=== PATIENT | female | born 1990 | race Two or more races ===

== ENCOUNTER 2023-07-29 09:48 | Observation (INO) | payer MEDICAID ==
[2023-07-29 10:33] LABS: Basophils # (auto) 0.1 10 ^3/uL (0-0.2); Basophils % (auto) 0.9 % (0.0-2.0); Eosinophils # (auto) 0.1 10 ^3/uL (0-0.8); Eosinophils % (auto) 0.7 % (0.0-7.0); Hematocrit 39.3 % (36.0-46.0); Hemoglobin 13.5 g/dL (12.2-16.2); Lymphocytes # (auto) 2.3 10 ^3/uL (0.4-5.4); Lymphocytes % (auto) 19.2 % (10.0-50.0); Mean Corpuscular Hgb Conc. 34.3 g/dL (32.0-36.0); Mean Corpuscular Volume 87.5 fL (80.0-100.0); Monocytes # (auto) 0.6 10 ^3/uL (0-1.3); Monocytes % (auto) 4.7 % (0.0-12.0); Neutrophils # (auto) 8.8 10 ^3/uL (1.6-8.6); Neutrophils % (auto) 74.5 % (37.0-80.0); Red Blood Cells 4.49 10^6/uL (4.0-5.20); Red Cell Distribution Width 14.5 % (11.8-14.3); White Blood Cell 11.8 10^3/uL (4.4-10.8)
[2023-07-29 10:41] LABS: Urine Bacteria NONE SEEN /hpf (None Seen); Urine Blood Negative /uL (Negative); Urine Clarity Clear (Clear); Urine Protein, UAD Negative (Negative); Urine Specific Gravity 1.011 (1.001-1.035); Urine Urobilinogen Normal (Negative); Urine WBC 2 /hpf (0 - 5); Urine pH 7.5 (5.0-8.0)
[2023-07-29 10:42] LABS: Urine Color Straw (Yellow)
[2023-07-29 10:49] LABS: INR 0.92 (0.9-1.15); Partial Thromboplastin Time 26.8 SEC (24.5-34.5); Prothrombin Time 9.7 sec (9.3-11.8)
[2023-07-29 11:00] LABS: Protein, Urine < 6.0 mg/dL (0.0-11.9)
[2023-07-29 11:03] LABS: Creatinine, Urine 42.54 mg/dL (30.0-125.0); Urine Protein/Creatinine Ratio 0.14
[2023-07-29 11:06] LABS: Alanine Aminotransferase 13 U/L (7-40); Alkaline Phosphatase 50 U/L (46-116); Calcium 9.3 mg/dL (8.7-10.4); Carbon Dioxide 24 mmol/L (20-30); Chloride 107 mmol/L (98-107)
[2023-07-29 11:07] LABS: Albumin 4.4 g/dL (3.2-4.8); Anion Gap 5 (5-15); Aspartate Aminotransferase 13 U/L (13-40); BUN/Creatinine Ratio 9.8 (10.0-20.0); Bilirubin, Total 0.2 mg/dL (0.2-1.0); Blood Urea Nitrogen < 5 mg/dL (9-23); Glucose 95 mg/dL (74-106); Sodium 136 mmol/L (136-145); Total Protein 7.3 g/dL (5.7-8.2); Uric Acid 3.1 mg/dL (3.1-7.8)
[2023-07-29] MEDS ORDERED: PREN-96 PO (11:20)
[2023-07-29] MEDS ORDERED: NITR-87 PO (11:20)
== END 2023-07-29 11:38 | disposition home or self-care (01) ==
LOC: LDRP 09:48 → UNDOADMOB 09:48 → LDRP 09:57
PROVIDERS: ADMIT Obstetrics & Gynecology; ATTEND Obstetrics & Gynecology
DX: O26.892 Other specified pregnancy related conditions, second trimester (principal); R03.0 Elevated blood-pressure reading, without diagnosis of hypertension; Z3A.24 24 weeks gestation of pregnancy; Z79.899 Other long term (current) drug therapy
CPT/HCPCS: 36415; 59025; 80053; 81001; 81002; 82570; 84156; 84550; 85025; 85610; 85730; 94760; G0378

== ENCOUNTER 2023-08-01 08:09 | Observation (INO) | payer MEDICAID ==
[~2023-08-01] VITALS: Ht 152.4 cm; Wt 69.4 kg
[~2023-08-01 08:09] MED LIST: NITR-87 PO; PREN-96 PO
[2023-08-01 08:41] LABS: Urine Bacteria FEW /hpf (None Seen); Urine Blood Negative /uL (Negative); Urine Clarity HAZY (Clear); Urine Color Yellow (Yellow); Urine Mucus FEW (None Seen); Urine Protein, UAD 1+ (Negative); Urine Specific Gravity 1.029 (1.001-1.035); Urine Urobilinogen Normal (Negative); Urine WBC 73 /hpf (0 - 5)
[2023-08-01 08:49] LABS: Protein, Urine 17.8 mg/dL (0.0-11.9)
[2023-08-01 08:52] LABS: Creatinine, Urine 185.55 mg/dL (30.0-125.0); Urine Protein/Creatinine Ratio 0.1
[2023-08-01 10:56] LABS: Protein, Urine 8.3 mg/dL (0.0-11.9)
[2023-08-01 11:45] LABS: 24 Hr. Total Protein, Urine 103.7 mg/24 Hr (<149.1)
== END 2023-08-01 09:50 | disposition home or self-care (01) ==
LOC: LDRP 08:09
PROVIDERS: ADMIT Obstetrics & Gynecology; ATTEND Obstetrics & Gynecology
DX: O13.2 Gestational [pregnancy-induced] hypertension without significant proteinuria, second trimester (principal); Z3A.24 24 weeks gestation of pregnancy
CPT/HCPCS: 59025; 81001; 81002; 82570; 84156; 94760; G0378

== ENCOUNTER 2023-08-06 08:02 | Observation (INO) | payer MEDICAID ==
[~2023-08-06] VITALS: Ht 152.4 cm; Wt 69.4 kg
== END 2023-08-06 09:45 | disposition home or self-care (01) ==
LOC: UNDOADMOB 08:02 → LDRP 08:02
PROVIDERS: ADMIT Obstetrics & Gynecology; ATTEND Obstetrics & Gynecology
DX: O13.2 Gestational [pregnancy-induced] hypertension without significant proteinuria, second trimester (principal); O26.892 Other specified pregnancy related conditions, second trimester; H53.8 Other visual disturbances; Z3A.25 25 weeks gestation of pregnancy
CPT/HCPCS: 59025; 81002; 94760; G0378

== ENCOUNTER 2023-08-13 08:00 | Observation (INO) | payer MEDICAID | END 2023-08-13 09:07 | disposition home or self-care (01) | LOC: LDRP 08:00 | PROVIDERS: ADMIT Obstetrics & Gynecology; ATTEND Obstetrics & Gynecology | DX: O26.892 Other specified pregnancy related conditions, second trimester (principal); R03.0 Elevated blood-pressure reading, without diagnosis of hypertension; Z3A.26 26 weeks gestation of pregnancy | CPT/HCPCS: 59025; 81002; G0378 ==

== ENCOUNTER 2023-09-23 08:07 | Observation (INO) | payer MEDICAID | END 2023-09-23 09:57 | disposition home or self-care (01) | LOC: LDRP 08:07 → UNDOADMOB 08:07 → LDRP 08:11 → UNDODISOB 09:57 | PROVIDERS: ADMIT Obstetrics & Gynecology; ATTEND Obstetrics & Gynecology | DX: O24.419 Gestational diabetes mellitus in pregnancy, unspecified control (principal); O12.03 Gestational edema, third trimester; Z3A.32 32 weeks gestation of pregnancy | CPT/HCPCS: 59025; 76818; 81002; 82962; 94760; G0378 ==

== ENCOUNTER 2023-09-30 07:57 | Observation (INO) | payer MEDICAID | END 2023-09-30 09:43 | disposition home or self-care (01) | LOC: LDRP 07:57 → UNDOADMOB 07:57 → LDRP 08:03 → UNDODISOB 09:43 | PROVIDERS: ADMIT Obstetrics & Gynecology; ATTEND Obstetrics & Gynecology | DX: O24.419 Gestational diabetes mellitus in pregnancy, unspecified control (principal); Z3A.33 33 weeks gestation of pregnancy | CPT/HCPCS: 59025; 76818; 81002; 82948; 82962; 94760; G0378 ==

== ENCOUNTER 2023-10-07 07:55 | Observation (INO) | payer MEDICAID ==
[~2023-10-07] VITALS: Ht 152.4 cm; Wt 72.1 kg
== END 2023-10-07 09:13 | disposition home or self-care (01) ==
LOC: LDRP 07:55 → UNDOADMOB 07:55 → LDRP 08:00 → UNDODISOB 09:13
PROVIDERS: ADMIT Obstetrics & Gynecology; ATTEND Obstetrics & Gynecology
DX: O24.419 Gestational diabetes mellitus in pregnancy, unspecified control (principal); Z3A.38 38 weeks gestation of pregnancy
CPT/HCPCS: 59025; 76818; 81002; 82948; 94760; G0378

== ENCOUNTER 2023-10-14 07:56 | Observation (INO) | payer MEDICAID ==
[~2023-10-14 07:56] MED LIST changes: -NITR-87 PO
== END 2023-10-14 09:10 | disposition home or self-care (01) ==
LOC: UNDOADMOB 07:56 → LDRP 07:56
PROVIDERS: ADMIT Obstetrics & Gynecology; ATTEND Obstetrics & Gynecology
DX: O24.419 Gestational diabetes mellitus in pregnancy, unspecified control (principal); Z3A.35 35 weeks gestation of pregnancy
CPT/HCPCS: 59025; 76818; 81002; 82948; 82962; 94760; G0378

== ENCOUNTER 2023-10-21 08:08 | Observation (INO) | payer MEDICAID | END 2023-10-21 09:48 | disposition home or self-care (01) | LOC: LDRP 08:08 → UNDOADMOB 08:08 → LDRP 08:18 → UNDODISOB 09:48 | PROVIDERS: ADMIT Obstetrics & Gynecology; ATTEND Obstetrics & Gynecology | DX: O24.419 Gestational diabetes mellitus in pregnancy, unspecified control (principal); O62.9 Abnormality of forces of labor, unspecified; Z3A.36 36 weeks gestation of pregnancy | CPT/HCPCS: 59025; 76818; 81002; 82948; 82962; 94760; G0378 ==

== ENCOUNTER 2023-10-28 08:03 | Observation (INO) | payer MEDICAID | END 2023-10-28 09:23 | disposition home or self-care (01) | LOC: UNDOADMOB 08:03 → LDRP 08:03 | PROVIDERS: ADMIT Obstetrics & Gynecology; ATTEND Obstetrics & Gynecology | DX: O24.419 Gestational diabetes mellitus in pregnancy, unspecified control (principal); Z3A.37 37 weeks gestation of pregnancy | CPT/HCPCS: 59025; 76818; 81002; 82948; 82962; 94760; G0378 ==

== ENCOUNTER 2023-11-04 08:16 | Observation (INO) | payer MEDICAID ==
[~2023-11-04] VITALS: Ht 152.4 cm; Wt 72.6 kg
== END 2023-11-04 09:25 | disposition home or self-care (01) ==
LOC: LDRP 08:16 → UNDOADMOB 08:16 → LDRP 08:18 → UNDODISOB 09:25
PROVIDERS: ADMIT Obstetrics & Gynecology; ATTEND Obstetrics & Gynecology
DX: O24.419 Gestational diabetes mellitus in pregnancy, unspecified control (principal); Z3A.38 38 weeks gestation of pregnancy; Z88.1 Allergy status to other antibiotic agents
CPT/HCPCS: 59025; 76818; 81002; 82948; 94760; G0378

== ENCOUNTER 2023-11-10 09:11 | Observation (INO) | payer MEDICAID | END 2023-11-10 10:50 | disposition home or self-care (01) | LOC: UNDOADMOB 09:11 → LDRP 09:11 → UNDODISOB 10:50 | PROVIDERS: ADMIT Obstetrics & Gynecology; ATTEND Obstetrics & Gynecology | DX: O24.419 Gestational diabetes mellitus in pregnancy, unspecified control (principal); Z3A.39 39 weeks gestation of pregnancy | CPT/HCPCS: 59025; 76818; 81002; 82948; 82962; 94760; G0378 ==

== ENCOUNTER 2023-11-12 22:06 | Observation (INO) | payer MEDICAID | END 2023-11-13 01:32 | disposition home or self-care (01) | LOC: LDRP 22:06 | PROVIDERS: ADMIT Obstetrics & Gynecology; ATTEND Obstetrics & Gynecology | DX: O62.9 Abnormality of forces of labor, unspecified (principal); O24.419 Gestational diabetes mellitus in pregnancy, unspecified control; Z3A.39 39 weeks gestation of pregnancy | CPT/HCPCS: 59025; 81002; 82962; G0378 ==

== ENCOUNTER 2024-10-14 07:27 | Day surgery (SDC) | payer MEDICAID ==
--- NOTE | 2024-10-11 11:56 | DVHHP ---
ADMIT DATE: 10/11/2024 CHIEF COMPLAINT: Desires tubal ligation. HISTORY OF PRESENT ILLNESS: The patient is a 34-year-old 6, para 6, admitted for laparoscopic placement of Filshie clips. She does not want any other form of contraception. Risks, complication, failure discussed with the patient. The patient fully understands and wishes to proceed with planned procedure. PAST MEDICAL HISTORY: None. PAST SURGICAL HISTORY: None. SOCIAL HISTORY: None. FAMILY HISTORY: None. OBSTETRIC AND GYNECOLOGIC HISTORY: Six normal vaginal deliveries. ALLERGIES: No known drug allergies. REVIEW OF SYSTEMS: Consistent with HPI. PHYSICAL EXAMINATION: VITAL SIGNS: Stable, afebrile. HEENT: Within normal limits. CARDIOVASCULAR: Regular rate and rhythm. LUNGS: Clear to auscultation. BREASTS: Symmetrical. No masses. ABDOMEN: Soft, nontender. PELVIC: External genitalia within normal limits. Vagina normal. Cervix grossly normal. Uterus 7 weeks size. Adnexa nonpalpable. EXTREMITIES: No clubbing, cyanosis or edema. IMPRESSION: Multiparity, desires bilateral tubal ligation. PLAN: Laparoscopic placement of Filshie clip. Informed consent obtained. Risks, complication of surgery including infection, bleeding, hematoma formation, injury to bowel, bladder, surrounding organs, possibility of DVT, pulmonary embolism, risk of anesthesia discussed with the patient. Options reviewed. All questions answered. The patient fully understands. She wishes to proceed with planned procedure. Failure rate discussed with the patient. DO DILLON [place]/TRISH TID: [id number] RECEIPT: [id number]
[2024-10-11 12:39] LABS: Urine Bacteria None Seen /hpf (None Seen)
[2024-10-11 12:51] LABS: Basophils # (auto) 0.1 10 ^3/uL (0-0.2); Basophils % (auto) 1.2 % (0.0-2.0); Eosinophils # (auto) 0.2 10 ^3/uL (0-0.8); Eosinophils % (auto) 2.1 % (0.0-7.0); Hematocrit 40.8 % (36.0-46.0); Hemoglobin 13.6 g/dL (12.2-16.2); Lymphocytes # (auto) 2.9 10 ^3/uL (0.4-5.4); Lymphocytes % (auto) 34.6 % (10.0-50.0); Mean Corpuscular Hemoglobin 28.3 pg (28.0-32.0); Mean Corpuscular Hgb Conc. 33.4 g/dL (32.0-36.0); Mean Corpuscular Volume 84.8 fL (80.0-100.0); Monocytes # (auto) 0.4 10 ^3/uL (0-1.3); Monocytes % (auto) 5.2 % (0.0-12.0); Neutrophils # (auto) 4.7 10 ^3/uL (1.6-8.6); Neutrophils % (auto) 56.9 % (37.0-80.0); Platelet Count (auto) 396 10^3/uL (140-450); Red Blood Cells 4.81 10^6/uL (4.0-5.20); Red Cell Distribution Width 13.6 % (11.8-14.3); White Blood Cell 8.3 10^3/uL (4.4-10.8)
[2024-10-11 12:56] LABS: Urine Blood Negative /uL (Negative); Urine Clarity Clear (Clear); Urine Color Yellow (Yellow); Urine Mucus FEW (None Seen); Urine Protein, UAD TRACE (Negative); Urine Specific Gravity 1.034 (1.001-1.035); Urine Urobilinogen Normal (Negative); Urine WBC 2 /hpf (0 - 5); Urine pH 5.5 (5.0-9.0)
[2024-10-11 13:05] LABS: INR 0.98 (0.9-1.15); Partial Thromboplastin Time 28.5 SEC (24.5-34.5); Prothrombin Time 10.4 sec (9.3-11.8)
[2024-10-11 13:40] LABS: Alanine Aminotransferase 22 U/L (7-40); Albumin 4.5 g/dL (3.2-4.8); Alkaline Phosphatase 68 U/L (46-116); Anion Gap 5 (5-15); Aspartate Aminotransferase 16 U/L (13-40); BUN/Creatinine Ratio 19.4 (10.0-20.0); Bilirubin, Total 0.3 mg/dL (0.2-1.0); Blood Urea Nitrogen 12 mg/dL (9-23); Carbon Dioxide 28 mmol/L (20-31); Glucose 96 mg/dL (74-106); Sodium 141 mmol/L (136-145); Total Protein 7.4 g/dL (5.7-8.2)
[2024-10-11 13:41] LABS: Chloride 108 mmol/L (98-107)
[~2024-10-14] VITALS: Ht 154.9 cm; Wt 61.2 kg
[~2024-10-14 07:27] MED LIST changes: +CLIN150C PO; -PREN-96 PO
[2024-10-14] MEDS ORDERED: ROCURONIUM 10MG/ML 10ML VIAL IV ONE (07:28)
[2024-10-14] MEDS ORDERED: CLINDAMYCIN 600MG IV 0 ML IV ONE (07:28)
[2024-10-14] MEDS ORDERED: CLINDAMYCIN 600MG IV 50 ML IV ONE (07:42)
[2024-10-14] MEDS ORDERED: HYDR-4072 PO (08:28)
[2024-10-14] MEDS ORDERED: ZOFR4T PO (08:28)
[2024-10-14] MEDS ORDERED: LACTATED RINGER'S 1,000 ML IV SCH (08:30)
[2024-10-14] MEDS ORDERED: ONDANSETRON HCL 4 MG/2 ML VIAL IV PRN (08:30)
[2024-10-14] MEDS ORDERED: MIDAZOLAM HCL 2MG/2ML 2ml VIAL (1mg/ml) ONE (08:56)
[2024-10-14] MEDS ORDERED: fentaNYL CITRATE 100 MCG/2 ML VL ONE (08:56)
[2024-10-14] MEDS ORDERED: MEPERIDINE HCL (50 MG/ML) 1 ML VIAL ONE (08:56)
--- NOTE | 2024-10-14 09:32 | DVHOP2 ---
Operative Report DATE OF OPERATION: 10/14/24 PREOPERATIVE DIAGNOSES: 1. Desires elective tubal sterilization. 2. desires iud removal POSTOPERATIVE DIAGNOSES: 1. Desires elective tubal sterilization. 2. same SURGEON: Becky Almonte D.O./vik ANESTHESIOLOGIST: rachael TYPE OF ANESTHESIA : General. CONSENT: The patient was informed of the risks and benefits of the procedure. The patient was informed of the risks and benefits of the procedure. These include but are not limited to , complications of anesthesia, postoperative infection, incomplete relief of symptoms, recurrence of symptoms, damage to blood vessels, nerves and tendons, deep venous thrombosis, pulmonary embolism and possible need for repeat surgery in the future. FINDINGS: Cervix is grossly normal appearing. Uterus is 10 weeks' size. Adnexa nonpalpable.iud in place removed COMPLICATIONS: None. BLOOD PRODUCTS USED: None. PROCEDURES: Laparoscopic placement of Filschi Clips to bilateral tubes,removal of iud PROCEDURE IN DETAIL: The patient was taken to the operating room where she was placed under general anesthesia. The patient was then prepped and draped in the usual sterile manner in the dorsal lithotomy position. The bladder was emptied using a straight catheter. Examination under anesthesia revealed the above findings. A weighted speculum was placed in the vagina. The anterior lip of the cervix was grasped using single-tooth tenaculum. Cervix was dilated. iud was removed Uterus sounded to 10 cm. HUMI catheter was placed. Attention was then turned to the abdomen where a Veress needle was introduced. Abdomen was distended with 3L of CO2 gas. Using Visiport, abdomen was entered under direct visualization. Survey of abdominal cavity revealed normal finding. A 8 mm trocar was placed into the suprapubic region. Filshie clip was then loaded on the right tube as well as the left. No bleeding was noted. All the instruments were removed from the abdomen and pelvis. CO2 gas released. Incisional ports were closed using #4-0 Vicryl and cris for the larger port. The patient tolerated the procedure well. All instruments were removed from the patient's cervix. The patient was taken to the recovery room in a stable condition. ESTIMATED BLOOD LOSS: 20 mL BECKY ALMONTE DO Oct 14, 2024 09:32
[2024-10-14] MEDS: LIDOCAINE W/ EPINEPHRINE 1% 20ML VIAL ONE (09:34)
[2024-10-14] MEDS: BUPIVACAINE HCL 0.25% P/F 10 ML VIAL ONE (09:34)
--- NOTE | 2024-10-14 09:35 | POSTOP ---
Post-Operative Note Post-Operative Note Preop Diagnosis desires iud removal and tubal ligation Postop Diagnosis: DESIRES IUD REMOVAL AND TUBAL LIGATION Operation performed laparoscopic placement of filschie clips and removal of iud Specimen iud Anesthesia: General Anesthesiologist: rachael Blood Loss(fluid mgmt) 20ml Surgeon Cholo Almonte General Purchasing [employer] vik Implant clips Complications & Mgmt none Date 10/14/24 Time 09:32 CHOLO ALMONTE DO Oct 14, 2024 09:35
--- NOTE | 2024-10-14 09:36 | DVHDS2 ---
Physician Discharge Progress N Final Diagnosis: DESIRES IUD REMOVAL AND TUBAL LIGATION Operations or Procedures: Operations or Procedures laparoscopic placement of filschie clips and removal of iud Condition on Discharge: Good Disposition: Home Discharge Instructions: Diet: Regular Activity: Light activity Follow Up/Referral: 1W Medications: NORCO AND ZOFRAN Follow Up Care: Specialist: 1w Discharge Statement: "Patient was advised to return to the ER or call 911 if any headaches, dizziness, shortness of breath, chest pain, abdominal pain, bleeding, fevers, or worsening of medical condition. Patient was counseled about treatment plan, medications, possible side effects, patientverbalized understanding. All questions were answered to the best of my ability. This discharge took greater then 30 minutes in planning, reviewing documentation, counseling the patient, and discussing with other team members." CHOLO ECHOLS DO Oct 14, 2024 09:36
[2024-10-14] MEDS ORDERED: IBUP-1456 PO (09:37)
[2024-10-14] MEDS ORDERED: DexAMETHasone SOD PHOS 10MG/1ML VIAL INJ ONE (09:38)
[2024-10-14] MEDS ORDERED: PROPOFOL 10 MG/ML 20 ML IV ONE (09:38)
[2024-10-14 09:55] VITALS: PULSE 82; RESP 12; TEMP 97.6; O2SAT 99
[2024-10-14] MEDS ORDERED: ONDANSETRON HCL 4 MG/2 ML VIAL IV ONE (10:00)
[2024-10-14] MEDS ORDERED: MIDAZOLAM HCL 2MG/2ML 2ml VIAL (1mg/ml) IV PRN (10:00)
[2024-10-14] MEDS ORDERED: MORPHINE SULFATE 4 MG/ML SYR/VIAL IV PRN (10:00)
[2024-10-14] MEDS ORDERED: ePHEDrine SULFATE 50 MG/ML AMP IV PRN (10:00)
[2024-10-14] MEDS ORDERED: HYDROmorphone HCL 2 MG/ML VL/or syr ONE (10:15)
[2024-10-14] MEDS: HYDROmorphone HCL 2 MG/ML VL/or syr IV PRN (10:17)
[2024-10-14 11:35] VITALS: BP 121/80; PULSE 90; RESP 14; O2SAT 96
== END 2024-10-14 11:53 | disposition home or self-care (01) ==
LOC: SUR 07:27
PROVIDERS: ATTEND Obstetrics & Gynecology
DX: Z30.2 Encounter for sterilization (principal); Z88.8 Allergy status to other drugs, medicaments and biological substances
CPT/HCPCS: 36415; 58301; 58671; 80053; 81001; 81025; 84702; 85025; 85610; 85730; 86850; 86900; 86901; J1100; J1171; J2175; J2250; J2704; J3010; J3490